=== PATIENT | male | born 1960 | race Hispanic/Latino ===

== ENCOUNTER 2020-08-20 19:38 | Emergency (ER) | payer OTHER ==
[2020-08-20] MEDS ORDERED: ONDANSETRON 4 MG/2 ML VIAL ONE (21:39)
[2020-08-20] MEDS ORDERED: MORPHINE 2 MG/ML SYR ONE ×2 (21:39→23:01)
[2020-08-20 21:45] LABS: Absolute Lymphocytes (CBC) 1.9 K/uL (0.7-4.9); Basophils % 0.8 % (0-1.3); Hematocrit 38.6 % (39.6-49.0); Lymphocytes % 21.9 % (15.3-44.8); MPV 8.8 fL (7.6-11.3); RBC Red Blood Cell Count 4.11 M/uL (4.33-5.43)
[2020-08-20 21:50] LABS: Protime INR 1.1
[2020-08-20 21:56] LABS: Potassium 3.8 mmol/L (3.5-5.1)
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
[2020-08-21 00:38] VITALS: TEMP 99.2
[2020-08-21 00:42] VITALS: O2SAT 99
[2020-08-21 00:44] VITALS: BP 132/81
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
== END 2020-08-21 00:14 | disposition home or self-care (01) ==
LOC: ER 19:38
DX: S40.012A Contusion of left shoulder, initial encounter (principal); S20.219A Contusion of unspecified front wall of thorax, initial encounter; V49.49XA Driver injured in collision with other motor vehicles in traffic accident, initial encounter; F17.210 Nicotine dependence, cigarettes, uncomplicated
CPT/HCPCS: 85025; 80048; 36415; 86900; 86850; 85610; 82565; 86901; 85730; 70450; 72125; 71260; 74177; 73030; 96375; 96374; 99285; Q9967; J2270 ×2; J2405